=== PATIENT | female | born 1980 | race Caucasian/White ===

== ENCOUNTER → 2020-10-16 | Outpatient (CLI) | payer OTHER | LOC: KOH-I 10:45 | DX: M25.571 Pain in right ankle and joints of right foot (principal) | CPT/HCPCS: 73610 ==

== ENCOUNTER → 2020-10-19 | Outpatient (CLI) | payer OTHER | LOC: EMI 16:05 | DX: S93.439A Sprain of tibiofibular ligament of unspecified ankle, initial encounter (principal) | CPT/HCPCS: 73721 ==

== ENCOUNTER → 2021-01-25 | Outpatient (CLI) | payer OTHER ==
[~2021-01-25] MED LIST: DICLOFENAC SODIUM; MULTI FOR HER1 EACH PO; PROTONIX20 MG PO
[2021-01-25 11:55] LABS: HEMOGLOBIN 15.2 gm/dl (12.3-15.3); RED BLOOD COUNT 4.62 M/UL (4.00-5.10); WHITE BLOOD COUNT 6.4 K/UL (4.5-11.0)
[2021-01-25 12:12] LABS: BUN/CREATININE RATIO 14 (0-10)
== END ==
LOC: OPSV2 11:00
PROVIDERS: Podiatrist Foot & Ankle Surgery
DX: Z01.812 Encounter for preprocedural laboratory examination (principal); M76.71 Peroneal tendinitis, right leg; S83.401A Sprain of unspecified collateral ligament of right knee, initial encounter; S93.491A Sprain of other ligament of right ankle, initial encounter
CPT/HCPCS: 36415; 80048; 85025

== ENCOUNTER → 2021-01-30 | Day surgery (SDC) | payer OTHER ==
[~2021-01-30] VITALS: Ht 157.5 cm; Wt 71.7 kg
== END | disposition home or self-care (01) ==
LOC: OR 07:19
DX: S93.491A Sprain of other ligament of right ankle, initial encounter (principal); M24.071 Loose body in right ankle; M25.371 Other instability, right ankle; M65.871 Other synovitis and tenosynovitis, right ankle and foot; K59.1 Functional diarrhea; K21.9 Gastro-esophageal reflux disease without esophagitis; F33.1 Major depressive disorder, recurrent, moderate; Z90.49 Acquired absence of other specified parts of digestive tract; Z20.822 Contact with and (suspected) exposure to COVID-19
CPT/HCPCS: 84703; C1713; J0171; J1100; J1170; J1885; J2001; J2250; J2370; J2405; J2550; J2704; J2710; J2795; J3010; J3370; J7120

== ENCOUNTER 2021-10-25 21:02 | Emergency (ER) | payer OTHER | END 2021-10-25 23:25 | disposition short-term general hospital (02) | LOC: ER1 21:02 | DX: S82.392B Other fracture of lower end of left tibia, initial encounter for open fracture type I or II (principal); S82.832B Other fracture of upper and lower end of left fibula, initial encounter for open fracture type I or II; Z23 Encounter for immunization; Z88.0 Allergy status to penicillin; V80.010A Animal-rider injured by fall from or being thrown from horse in noncollision accident, initial encounter | CPT/HCPCS: 73590; 73600; 90471; 90715; 96374; 96375; 96376; 99284; J1170; J2270; J2405 ==